=== PATIENT | male | born 1965 ===

== ENCOUNTER 2018-06-19 10:19 | Emergency (ER) | payer SELFPAY ==
[2018-06-19 10:26] VITALS: BMI 36.9
[2018-06-19 10:36] VITALS: RESP 20; TEMP 98; O2SAT 98
[2018-06-19] MEDS ORDERED: Lidocaine 2% w Epi 1:100,000 Inj IJ STA (11:20)
[2018-06-19] MEDS ORDERED: Lidocaine 2% w Epi 1:100,000 Inj IJ ONE (11:24)
--- NOTE | 2018-06-19 12:31 | ED PDOC ---
Upper Extremity Pain/Injury Time Seen by Provider: 06/19/18 10:34 Chief Complaint (Nursing): Abnormal Skin Integrity Chief Complaint (Provider): Laceration on right hand History Per: Patient History/Exam Limitations: no limitations Onset/Duration Of Symptoms: Hrs (one hour [employer] ) Current Symptoms Are (Timing): Still Present Additional Complaint(s): 52 year old male presents to the ED for an evaluation on laceration to the right hand. Patient was cutting a pipe when a jagged pipe cut the posterior aspect of his right hand. Otherwise, patient denies numbness or any other injuries. His Tetanus vaccine was UTD 3 months ago by PMD. Currently, he takes baby Aspirin daily. PMD: unknown Past Medical History Reviewed: Historical Data, Nursing Documentation, Vital Signs Vital Signs: Last Vital Signs Temp 98 F 06/19/18 10:33 Pulse 68 06/19/18 10:33 Resp 20 06/19/18 10:33 BP 167/102 H 06/19/18 10:26 Pulse Ox 98 06/19/18 10:33 - Medical History PMH: No Chronic Diseases Denies: Chronic Kidney Disease - Family History Family History: States: Unknown Family Hx - Immunization History Hx Tetanus Toxoid Vaccination: No Hx Influenza Vaccination: No Hx Pneumococcal Vaccination: No - Home Medications Home Medications: Ambulatory Orders Medication Instructions Recorded Acetaminophen/Oxycodone Hydr 1 tab PO Q4H #12 tab 06/19/18 [Percocet 10/325 mg Tab] Cephalexin [cephalexin] 500 mg PO Q6 #40 cap 06/19/18 - Allergies Allergies/Adverse Reactions: Allergies Allergy/AdvReac Type Severity Reaction Status Date / Time No Known Allergies Allergy Verified 06/19/18 11:19 Review of Systems ROS Statement: Except As Marked, All Systems Reviewed And Found Negative Constitutional: Negative for: Fever Gastrointestinal: Negative for: Nausea, Vomiting Skin: Positive for: Other (right hand laceration ) Neurological: Negative for: Weakness, Numbness, Other (tingling) Physical Exam - Reviewed Nursing Documentation Reviewed: Yes Vital Signs Reviewed: Yes - Physical Exam Appears: Positive for: Well, Non-toxic, No Acute Distress Head Exam: Positive for: ATRAUMATIC, NORMAL INSPECTION, NORMOCEPHALIC Skin: Positive for: Normal Color, Warm, Dry. Negative for: Rash Extremity: Positive for: Normal ROM (full; ROM on flexion and extension of joints; full sensation to medial and lateral fingers of right hand), Other (Mild oozing of blood on right hand; no pulsatile bleeding; no exposed tendon or bone). Negative for: Deformity Neurological/Psych: Positive for: Awake, Alert, Normal Tone, Oriented (x3) - ECG O2 Sat by Pulse Oximetry: 98 (RA) Pulse Ox Interpretation: Normal Medical Decision Making Medical Decision Making: Time: 1120 Impression: simple laceration to the posterior right hand; no neurological movement abnormalities or deficits; no foreign bodies. Suture placed with no complications. Plan: Glucose, POC routine Ibuprofen 800mg Lidocaine 2% with Epi 20ml Patient discharged home with Percocet for pain and antibiotics due to dirty mechanism of laceration. Patient needs to return to ED for suture removal. Upon provider reevaluation patient is feeling better, is medically stable, and requires no further treatment in the ED at this time. Patient will be discharged home. Counseling was provided and all questions were answered regarding diagnosis. There is agreement to discharge plan. Return if symptoms persist or worsen. Scribe Attestation: Documented by Ciera Tilley, acting as a scribe for Heike Martinez MD Provider Scribe Attestation: All medical record entries made by the Scribe were at my direction and personally dictated by me. I have reviewed the chart and agree that the record accurately reflects my personal performance of the history, physical exam, medical decision making, and the department course for this patient. I have also personally directed, reviewed, and agree with the discharge instructions and disposition. Procedures - Time-Out Correct Patient: Yes Correct Procedure: Yes Correct Site Marked: Yes Medication Recon: Yes - Laceration/Wound Repair Right Posterior Hand Wound Length (cm): 7 Wound's Depth, Shape: superficial, linear, flap (one small flap) Wound Explored: no foreign body removed Irrigated w/ Saline (ccs): 600 Anesthesia: Lidocaine w/ Epi (5cc) Wound Debrided: minimal Wound Repaired With: Sutures Suture Size/Type: 4:0, nylon Number of Sutures: 11 Wound Complexity: Simple Sterile Dressing Applied?: Yes Disposition - Clinical Impression Clinical Impression: Laceration of hand, Sutured skin wound - Disposition Disposition: Routine/Home Disposition Time: 12:24 Condition: STABLE Additional Instructions: Return in 10 to 14 days to remove sutures. Return to the emergency department immediately if you develop numbness or loss of movement to the hand or fingers, redness, swelling, pus, or bleeding. Keep hand clean with soap and running water and keep dry. Take Percocet only for severe pain because there is a high risk of addition (Percocet is an Opioid). If you take Percocet, do not drive, operate machinery, or drink alcohol as it will cause drowsiness. Prescriptions: Acetaminophen/Oxycodone Hydr [Percocet 10/325 mg Tab] 1 tab PO Q4H #12 tab Cephalexin [cephalexin] 500 mg PO Q6 #40 cap Instructions: Wound Care (DC), Laceration Repair With Stitches (DC) Forms: [employer] (Greenlandic) Print Language: CROATIAN
[2018-06-19 15:31] VITALS: BP 120/70; PULSE 70
== END 2018-06-19 14:15 | disposition home or self-care (01) ==
LOC: H.ER 10:19
DX: S61.411A Laceration without foreign body of right hand, initial encounter (principal); W45.8XXA Other foreign body or object entering through skin, initial encounter

== ENCOUNTER 2018-07-03 08:21 | Emergency (ER) | payer SELFPAY ==
[2018-07-03 08:21] VITALS: BMI 36.9
[2018-07-03 08:27] VITALS: TEMP 98.3; O2SAT 99
[2018-07-03 08:33] VITALS: BP 145/86
--- NOTE | 2018-07-03 09:03 | ED PDOC ---
HPI: Wound Care - HPI Time Seen by Provider: 07/03/18 08:52 Chief Complaint (Nursing): Suture/Staple Removal Chief Complaint (Provider): Suture removal History Per: Patient Location Of Injury: Right: Hand Additional Complaint(s): 52yo male, returns to ER for suture removal. Patient was seen in this ER 2 weeks ago, had 11 sutures placed and now returns for removal. He reports he completed antibiotics course. Patient denies any fever, chills, pain, swelling or erythema to his hand. Past Medical History Reviewed: Historical Data, Nursing Documentation, Vital Signs Vital Signs: Last Vital Signs Temp 98.3 F 07/03/18 08:25 Pulse 93 H 07/03/18 08:25 Resp 19 07/03/18 08:25 BP 145/86 07/03/18 08:29 Pulse Ox 99 07/03/18 08:25 - Medical History PMH: No Chronic Diseases Denies: Chronic Kidney Disease - Surgical History Surgical History: No Surg Hx - Family History Family History: States: Unknown Family Hx - Immunization History Hx Tetanus Toxoid Vaccination: No Hx Influenza Vaccination: No Hx Pneumococcal Vaccination: No - Home Medications Home Medications: Ambulatory Orders Medication Instructions Recorded Acetaminophen/Oxycodone Hydr 1 tab PO Q4H #12 tab 06/19/18 [Percocet 10/325 mg Tab] Cephalexin [cephalexin] 500 mg PO Q6 #40 cap 06/19/18 - Allergies Allergies/Adverse Reactions: Allergies Allergy/AdvReac Type Severity Reaction Status Date / Time No Known Allergies Allergy Verified 07/03/18 08:33 Review of Systems Constitutional: Negative for: Fever, Chills Skin: Positive for: Other (healing laceration on right hand) Physical Exam - Reviewed Nursing Documentation Reviewed: Yes Vital Signs Reviewed: Yes - Physical Exam Appears: Positive for: No Acute Distress Head Exam: Positive for: NORMAL INSPECTION Skin: Positive for: Normal Color Eye Exam: Positive for: Normal appearance Neck: Positive for: Supple Cardiovascular/Chest: Negative for: Tachycardia Respiratory: Negative for: Respiratory Distress Pulses-Radial (R): 2+ Extremity: Positive for: Normal ROM (FROM of right hand), Capillary Refill (< 2 seconds), Other (healing laceration with sutures in place, small dehissence noted on the proximal portion of laceration). Negative for: Deformity, Swelling Neurological/Psych: Positive for: Awake, Alert, Normal Tone, Symmetric/Intact Strength. Negative for: Motor/Sensory Deficits - ECG O2 Sat by Pulse Oximetry: 99 (RA) Pulse Ox Interpretation: Normal Medical Decision Making Medical Decision Making: Impression: Suture removal Plan: -- 11 sutures removed from right hand Wound dehissence repaired with dermabond Patient informed of wound care, instructed to follow up with PMD in 2-3 days. ScribeAttestation: Documented byLaxmi Bell, acting as a scribe for Meme Bocanegra MD. Provider ScribeAttestation: All medical record entries made by the Scribe were at my direction and personally dictated by me. I have reviewed the chart and agree that the record accurately reflects my personal performance of the history, physical exam, medical decision making, and the department course for this patient. I have also personally directed, reviewed, and agree with the discharge instructions and disposition. Disposition - Clinical Impression Clinical Impression: Removal of suture, Visit for wound check - Disposition Disposition: Routine/Home Disposition Time: 09:13 Condition: STABLE Additional Instructions: FOLLOW-UP WITH PMD WITHIN 2 DAYS FOR REEVALUATION. Instructions: Stitches Removal, Laceration Repair With Glue (DC), Wound Care Forms: [employer] (French)
[2018-07-03 09:27] VITALS: PULSE 100; RESP 18
== END 2018-07-03 09:23 | disposition home or self-care (01) ==
LOC: H.ER 08:21
DX: Z48.02 Encounter for removal of sutures (principal)